=== PATIENT | male | born 1985 | race Caucasian/White ===

== ENCOUNTER 2017-06-26 04:39 | Emergency (ER) | payer SELFPAY ==
--- NOTE | 2017-06-26 05:16 | ER Document Report ---
Doctor's Note Notes: 06/26/17 05:15 I performed a quick triage evaluation the patient. Patient is a 31-year-old male who presents with complaint of a rash. Rash started out on his palm of his left hand and then started to spread. He also has on the palm of his right hand. It has since spread throughout his body. He also has several spots in the back of his throat across his torso. He denies any recent fever. He denies history of sexual transmitted disease. He says the rash does not really hurt nor itch. He says it is just "irritating. He has no medical problems. He has not been outside the country in over 6 months. 6 months ago he was in the [facility]. No other complaints at this time. I have ordered blood work to further evaluate things such as secondary syphilis due to the history of the rash started initially on the palms of his hands. Patient said he received vaccinations as a child. Unsure if he had chickenpox as a kid. Only sick contact is his who had strep throat last week. Patient again denies any recent fevers but his skin felt hot when the rash started last night. Patient denies any recent tick bites but has been out in the [place]. 06/26/17 05:27
[2017-06-26 05:58] LABS: ABSOLUTE EOSINOPHILS # (AUTO) 0.1 10^3/uL (0.0-0.6); ABSOLUTE LYMPHOCYTES (AUTO) 2.4 10^3/uL (0.5-4.7); ABSOLUTE MONOCYTES (AUTO) 0.7 10^3/uL (0.1-1.4); ABSOLUTE NEUT (AUTO) 6.3 10^3/uL (1.7-8.2); BASOPHILS % (AUTO) 0.3 % (0-2); HEMATOCRIT 41.2 % (37.9-51.0); HEMOGLOBIN 14.3 g/dL (13.5-17.0); HGB HCT DIFFERENCE 1.7; LYMPHOCYTES % (AUTO) 25.1 % (13-45); MEAN CORPUSCULAR HEMOGLOBIN 30.3 pg (27.0-33.4); MEAN CORPUSCULAR HGB CONC 34.7 g/dL (32.0-36.0); MEAN CORPUSCULAR VOLUME 87 fl (80-97); MONOCYTES % (AUTO) 7.4 % (3-13); RED BLOOD COUNT 4.72 10^6/uL (4.35-5.55); RED CELL DISTRIBUTION WIDTH 12.9 % (11.5-14.0); SEGMENTED NEUTROPHILS % (AUTO) 66.2 % (42-78); WHITE BLOOD COUNT 9.5 10^3/uL (4.0-10.5)
[2017-06-26 06:20] LABS: ANION GAP 17 (5-19); BLOOD UREA NITROGEN 7 mg/dL (7-20); CARBON DIOXIDE 25 mmol/L (22-30); CHLORIDE 103 mmol/L (98-107); CREATININE RESULT 0.85 mg/dL (0.52-1.25); GLUCOSE 129 mg/dL (75-110); POTASSIUM 3.5 mmol/L (3.6-5.0); SODIUM 144.6 mmol/L (137-145)
--- NOTE | 2017-06-26 07:09 | ER Document Report ---
ED Skin Rash/Insect Bite/Abscs - General Chief Complaint: Rash Stated Complaint: POSSIBLE ALLERGIC REACTION Time Seen by Provider: 06/26/17 06:49 Mode of Arrival: Ambulatory Information source: Patient Notes: This 31-year-old male patient comes emergency room complaining of a rash that started Tuesday morning 06/24/2017. Started initially on his left hand, progressed to his right hand, then spread to his entire body. He states that it does some itching, mostly live when he uses warm water to wash his hands. He does not feel the rash on his back. He has not been in contact with anyone with chickenpox that he knows of. He does have a 1-year-old child at home that is approximately 14 months old. He states that his mother told him he never had chickenpox, but he had shingles at the age of [age] years old. Evaluation of this rash which began first on the hands, without any URI type symptoms is concerning that it may not be chickenpox. Prior to my seeing the patient lab work had been put in to evaluate the possibility of rickettsial or syphilis being the cause of this rash. TRAVEL OUTSIDE OF THE [place] IN LAST 30 DAYS: No - Related Data Allergies/Adverse Reactions: ibuprofen [From Motrin] Allergy (Verified 06/26/17 04:47) Hives Past Medical History - General Information source: Patient - Social History Smoking Status: Current Every Day Smoker Cigarette use (# per day): Yes - 1PPD Chew tobacco use (# tins/day): No Smoking Education Provided: No Frequency of alcohol use: Occasional Drug Abuse: None Occupation: [employer] Lives with: Family Family History: Reviewed & Not Pertinent Patient has suicidal ideation: No Patient has homicidal ideation: No Pulmonary Medical History: Reports: Hx Asthma - Patient had asthma as a child EENT Medical History: Reports: None Neurological Medical History: Reports: None Endocrine Medical History: Reports: None Renal/ Medical History: Reports: None GI Medical History: Reports: None Musculoskeltal Medical History: Reports None Psychiatric Medical History: Reports: None Traumatic Medical History: Reports: None Surgical Hx: Negative - Immunizations Hx Diphtheria, Pertussis, Tetanus Vaccination: No Review of Systems - Review of Systems Constitutional: No symptoms reported EENT: No symptoms reported Cardiovascular: No symptoms reported Respiratory: No symptoms reported Gastrointestinal: No symptoms reported Genitourinary: No symptoms reported Musculoskeletal: No symptoms reported Skin: See HPI Hematologic/Lymphatic: No symptoms reported Neurological/Psychological: No symptoms reported Physical Exam - Vital signs Vitals: Temp Pulse Resp BP Pulse Ox 98.3 F 103 H 18 140/82 H 100 06/26/17 04:57 06/26/17 04:57 06/26/17 04:57 06/26/17 04:57 06/26/17 04:57 Interpretation: Normal - General General appearance: Appears well, Alert In distress: None - HEENT Head: Normocephalic, Atraumatic Eyes: Normal Pupils: PERRL Nasal: Normal Mucous membranes: Normal Pharynx: Normal Neck: Normal - Respiratory Respiratory status: No respiratory distress Chest status: Nontender Breath sounds: Normal Chest palpation: Normal - Cardiovascular Rhythm: Regular Heart sounds: Normal auscultation Murmur: No - Abdominal Inspection: Normal - Back Back: Normal - Extremities General upper extremity: Normal inspection - Except for the rash General lower extremity: Normal inspection - Except for the rash - Neurological Neuro grossly intact: Yes - Psychological Associated symptoms: Normal affect, Normal mood - Skin Skin Temperature: Warm - Both palms have rash in various stages with some small pustules, several beginning to crust over. He has some similar rash on his arms and legs. His back is covered with vesicular appearing rash with erythematous base that is very suggestive of chickenpox. Skin Moisture: Dry Skin Color: Normal Course - Re-evaluation Re-evalutation: 06/26/17 07:12 Patient will be placed on acyclovir 800 mg 5 times a day for 7 days, and serology will be done for Rickettsia and syphilis. - Vital Signs Vital signs: Temp Pulse Resp BP Pulse Ox 98.3 F 103 H 18 140/82 H 100 06/26/17 04:57 06/26/17 04:57 06/26/17 04:57 06/26/17 04:57 06/26/17 04:57 - Laboratory Result Diagrams: 06/26/17 05:25 06/26/17 05:25 Laboratory results interpreted by me: 06/26/17 05:25 Potassium 3.5 L Glucose 129 H Discharge - Discharge Clinical Impression: Chickenpox Qualifiers: Varicella complications: without complication Qualified Code(s): B01.9 - Varicella without complication Condition: Stable Disposition: HOME, SELF-CARE Additional Instructions: Chicken Pox You most likely have chicken pox. This is caused by a virus. It is contagious to other children. Typically, after two days' fever, small red bumps appear. Blisters develop, then collapse leaving a dark crust. New pox sores continue to appear for about three days. You will be contagious until all sores have healed -- about one week from the appearance of the rash. There is no cure for chicken pox. Treatment is relief of symptoms. Antihistamines such as Benadryl can be given for itching. You can try local treatments such as baking soda baths or calamine lotion. Acetaminophen can be used for fever. Do not give your child aspirin during this illness! To prevent spread of the virus, use good handwashing. Shared toys should be cleaned with disinfectant. Clean the toilets, sinks, and counter surfaces in bathrooms. Launder clothing in hot water. If new symptoms such as headache or vomiting occur, if there is severe cough or a return of the fever, or if it appears that a chicken pox sore is infected, see your doctor or go to the hospital emergency room. //////////////////////////////////////////////////////////////////////////////// //////////////////////////////////////////////////////////////////////////////// ////////////////// Your rash is most suspicious for chickenpox, however and adults we do have concerns for other infectious causes that can masquerade like chickenpox. You had blood work sent off for serological testing of rickettsial diseases and syphilis. If these come back positive he will be contacted. For now we will treat you like this is chickenpox using Acyclovir 800 mg every 4 hours 5 times a day with an 8 hour break between the last dose on 1 day and the first dose of the following day. Follow-up with a local medical doctor as needed. RETURN TO THE EMERGENCY ROOM IF ANY NEW OR WORSENING SYMPTOMS. Prescriptions: Acyclovir 800 mg PO ASDIR PRN #35 tablet PRN Reason: Forms: Return to Work
[2017-06-26] MEDS ORDERED: ACYCLOVIR 800 MG TABLET PO ONE (07:19)
[2017-06-26] MEDS ORDERED: ACYCLOVIR 200 MG CAPSULE PO ONE (07:26)
[2017-06-26 07:47] VITALS: BP 120/75
== END 2017-06-26 07:30 | disposition home or self-care (01) ==
LOC: ER 04:39
DX: B01.9 Varicella without complication (principal); R21 Rash and other nonspecific skin eruption; M79.642 Pain in left hand
CPT/HCPCS: 36415; 80048; 85025; 86592; 86757; 87070; 87077; 87880; 99283

== ENCOUNTER 2018-04-07 17:55 | Emergency (ER) | payer OTHER ==
[2018-04-07 18:31] LABS: ABSOLUTE BASOPHILS # (AUTO) 0.1 10^3/uL (0.0-0.2); ABSOLUTE EOSINOPHILS # (AUTO) 0.1 10^3/uL (0.0-0.6); ABSOLUTE LYMPHOCYTES (AUTO) 4.5 10^3/uL (0.5-4.7); ABSOLUTE MONOCYTES (AUTO) 0.8 10^3/uL (0.1-1.4); ABSOLUTE NEUT (AUTO) 5.8 10^3/uL (1.7-8.2); BASOPHILS % (AUTO) 0.5 % (0-2); HEMATOCRIT 41.9 % (37.9-51.0); HEMOGLOBIN 14.7 g/dL (13.5-17.0); LYMPHOCYTES % (AUTO) 39.7 % (13-45); MEAN CORPUSCULAR HEMOGLOBIN 31.2 pg (27.0-33.4); MEAN CORPUSCULAR HGB CONC 35.1 g/dL (32.0-36.0); MEAN CORPUSCULAR VOLUME 89 fl (80-97); MONOCYTES % (AUTO) 7.1 % (3-13); PLATELET COUNT 298 10^3/uL (150-450); RED CELL DISTRIBUTION WIDTH 13.5 % (11.5-14.0); SEGMENTED NEUTROPHILS % (AUTO) 51.7 % (42-78); TOTAL CELLS COUNTED % (AUTO) 100 %; WHITE BLOOD COUNT 11.3 10^3/uL (4.0-10.5)
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
[2018-04-07 18:52] LABS: ALANINE AMINOTRANSFERASE 38 U/L (21-72); ALBUMIN 4.9 g/dL (3.5-5.0); ALKALINE PHOSPHATASE 99 U/L (38-126); ANION GAP 15 (5-19); ASPARTATE AMINO TRANSFERASE 31 U/L (17-59); BILIRUBIN,DIRECT 0.5 mg/dL (0.0-0.4); BILIRUBIN,TOTAL 0.7 mg/dL (0.2-1.3); BLOOD UREA NITROGEN 17 mg/dL (7-20); CALCIUM 9.8 mg/dL (8.4-10.2); CARBON DIOXIDE 22 mmol/L (22-30); CHLORIDE 102 mmol/L (98-107); GLUCOSE 192 mg/dL (75-110); SODIUM 139.1 mmol/L (137-145); TOTAL PROTEIN 7.9 g/dL (6.3-8.2)
--- NOTE | 2018-04-07 19:15 | RADIOLOGY REPORT (SQ) ---
EXAM DESCRIPTION: CHEST SINGLE VIEW COMPLETED DATE/TIME: 04/07/2018 6:37 pm REASON FOR STUDY: chest pain COMPARISON: CT angio chest 09/22/2010 AP chest 09/22/2010 EXAM PARAMETERS: NUMBER OF VIEWS: One view. TECHNIQUE: Single frontal radiographic view of the chest acquired. RADIATION DOSE: NA LIMITATIONS: None. FINDINGS: LUNGS AND PLEURA: No opacities, masses or pneumothorax. No pleural effusion. MEDIASTINUM AND HILAR STRUCTURES: No masses. Contour normal. HEART AND VASCULAR STRUCTURES: Heart normal in size. Normal vasculature. BONES: No acute findings. HARDWARE: None in the chest. OTHER: No other significant finding. IMPRESSION: NO ACUTE RADIOGRAPHIC FINDING IN THE CHEST. TECHNICAL DOCUMENTATION: JOB ID: [id number] [employer]- All Rights Reserved Reading location - IP/workstation name: [email or web address]
[2018-04-07] MEDS ORDERED: ACETAMINOPHEN 325 MG TABLET PO ONE (20:01)
[2018-04-07 22:40] VITALS: BP 137/75
== END 2018-04-07 22:35 | disposition home or self-care (01) ==
LOC: ER 17:55
DX: T40.1X1A Poisoning by heroin, accidental (unintentional), initial encounter (principal); Y92.810 Car as the place of occurrence of the external cause; R11.2 Nausea with vomiting, unspecified; Z63.0 Problems in relationship with spouse or partner; F17.210 Nicotine dependence, cigarettes, uncomplicated; I10 Essential (primary) hypertension; Z88.6 Allergy status to analgesic agent
CPT/HCPCS: 36415; 71045; 80053; 85025; 99284

== ENCOUNTER 2018-07-22 10:34 | Emergency (ER) | payer OTHER ==
[2018-07-22] MEDS ORDERED: ACETAMINOPHEN 325 MG TABLET PO ONE (11:05)
[2018-07-22] MEDS ORDERED: IBUPROFEN 600 MG TABLET PO ONE (11:05)
[2018-07-22] MEDS ORDERED: LIDOCAINE 1% INJ-PF (10 MG/ML) 30 ML SDV INJ ONE (11:06)
--- NOTE | 2018-07-22 11:08 | ER Document Report ---
ED General - General Chief Complaint: Abscess Stated Complaint: KNEE PAIN Time Seen by Provider: 07/22/18 10:58 Notes: Patient is a 32-year-old male who presents emergency department with a chief complaint of right knee pain. 5 days ago he noticed a small area on his knee that was itchy and he began to scratch it. He states that he thinks it might of been a "bug bite." He was seen in urgent care 4 days ago and they drained an abscess. He states that the pain is not any better. He feels like the pain is wrapping around. He does still have an abscess to the area. No packing was placed by the urgent care. He does admit to smoking cigarettes and smoking methamphetamines, but denies IV use of any drugs. TRAVEL OUTSIDE OF THE [place] IN LAST 30 DAYS: No - Related Data Allergies/Adverse Reactions: No Known Allergies Allergy (Unverified 07/22/18 11:10) Past Medical History - Social History Smoking Status: Current Every Day Smoker Frequency of alcohol use: Occasional Drug Abuse: Methamphetamine Family History: Reviewed & Not Pertinent - Past Medical History Cardiac Medical History: Reports: Hx Hypertension Pulmonary Medical History: Reports: Hx Asthma - Patient had asthma as a child Renal/ Medical History: Denies: Hx Peritoneal Dialysis Past Surgical History: Reports: Hx Cardiac Catheterization - 2010 - Immunizations Hx Diphtheria, Pertussis, Tetanus Vaccination: No Review of Systems - Review of Systems Notes: REVIEW OF SYSTEMS: CONSTITUTIONAL : Denies recent illness. Denies recent unintentional weight loss. Denies fever, chills, or sweats. EENT: Denies eye, ear, throat, or mouth pain, discharge, or symptoms. Denies nasal or sinus congestion. CARDIOVASCULAR: Denies chest pain. RESPIRATORY: Denies shortness of breath, cough, congestion, difficulty breathing, or wheezing. GASTROINTESTINAL: Denies nausea, vomiting, and diarrhea. Denies abdominal pain. Denies constipation. GENITOURINARY: Denies difficulty urinating, burning, blood in urine, urgency or frequency. MUSCULOSKELETAL: Denies neck and back pain. Denies joint pain or swelling. SKIN: See HPI HEMATOLOGIC : Denies easy bruising or bleeding. LYMPHATIC: Denies swollen, painful, enlarged glands. NEUROLOGICAL: Denies no numbness or tingling denies weakness. Denies headache. Denies altered mental status. Denies alteration in speech. PSYCHIATRIC: Denies stress, anxiety, alteration in sleep patterns, or depression. All other systems reviewed and negative. Physical Exam - Vital signs Vitals: Temp Pulse Resp BP Pulse Ox 97.9 F 103 H 20 151/80 H 100 07/22/18 10:37 07/22/18 10:37 07/22/18 10:37 07/22/18 10:37 07/22/18 10:37 - Notes Notes: PHYSICAL EXAMINATION: GENERAL: Appears well, healthy, well-nourished, no acute distress. HEAD: Normocephalic, atraumatic. EYES: PERRL, conjunctiva normal, all extraocular movements intact, sclera nonicteric ENT: Moist mucous membranes. NECK: Supple, no noticeable swelling, redness, rash. Normal range of motion. LUNGS: Equal breath sounds bilaterally and clear to auscultation. No wheezes rales or rhonchi. CARDIOVASCULAR: S1-S2, regular rate, regular rhythm. Radial pulses 2+, normal. ABDOMEN: Normoactive bowel sounds. Soft, nontender, no guarding, no rebound tenderness, and no masses palpated. EXTREMITIES: Normal strength and range of motion. Abscess noted to right anterior knee. NEUROLOGICAL: Moves all extremities upon command. Strength 5/5 in all extremities. PSYCH: Normal mood, normal affect. SKIN: Warm, dry. No rash, lesions, ulcerations noted. Normal skin turgor. Course - Re-evaluation Re-evalutation: 07/22/18 12:00 Differential diagnosis includes but normal limited to: abscess, dermoid cyst, sebaceous cyst, furnucle, or others. Patient's x-ray of his right knee is negative. I do not suspect he has a septic joint because he has full range of motion of his right knee. Incision and drainage was done to the patient's right knee. He tolerated the procedure well. A large amount of purulent drainage was drained. Iodoform packing was placed to his right knee. He will follow-up in 3 days for a wound recheck. Based on patient's physical exam and history, this is an abscess. It was drained in the ER. There is surrounding cellulitis. I do not believe the patient has underlying necrotizing fasciitis. Patient has risk factors for MRSA, because his [id number] was diagnosed with MRSA. Based on patient's physical exam and these factors, they will be treated with antibiotics. Verbal discharge instructions were given to the patient. They verbalized understanding. They are stable for discharge. - Vital Signs Vital signs: Temp Pulse Resp BP Pulse Ox 98.2 F 78 20 138/58 H 99 07/22/18 12:08 07/22/18 12:08 07/22/18 10:37 07/22/18 12:08 07/22/18 12:08 Discharge - Discharge Clinical Impression: Abscess Cellulitis Qualifiers: Site of cellulitis: extremity Site of cellulitis of extremity: lower extremity Laterality: right Qualified Code(s): L03.115 - Cellulitis of right lower limb Condition: Stable Disposition: HOME, SELF-CARE Instructions: Abscess ([facility]), Cephalexin ([facility]), MRSA Cellulitis ([facility]), Post Incision and Drainage, Trimethoprim-Sulfa ([facility]) Additional Instructions: You were seen for an abscess that required drainage. Please clean this area with soap and water twice daily and apply a topical antibiotic. Dress the area after each cleaning. He has been prescribed antibiotics for the redness around your knee. Please return if you develop fever, vomiting, the pain at the site worsens, you notice spreading redness from the area, or you have any other symptoms that are concerning to you. You had packing placed to your knee. Please follow-up in 2 days to have a wound recheck. Prescriptions: Cephalexin Monohydrate [Keflex 500 mg Capsule] 500 mg PO Q6H 7 Days capsule Sulfamethoxazole/Trimethoprim [Bactrim Ds Tablet] 1 each PO BID 7 Days #14 tablet Forms: Return to Work
--- NOTE | 2018-07-22 11:40 | RADIOLOGY REPORT (SQ) ---
EXAM DESCRIPTION: KNEE RIGHT 4 VIEWS COMPLETED DATE/TIME: 07/22/2018 11:32 am REASON FOR STUDY: knee pain; abscess COMPARISON: None. NUMBER OF VIEWS: Four views. TECHNIQUE: AP, lateral, and both oblique radiographic images acquired of the right knee. LIMITATIONS: None. FINDINGS: MINERALIZATION: Normal. BONES: No acute fracture or dislocation. No worrisome bone lesions. JOINT: No effusion. SOFT TISSUES: Prepatellar soft tissue swelling. No radio-opaque foreign body. OTHER: No other significant finding. IMPRESSION: PREPATELLAR SOFT TISSUE SWELLING. NO OTHER SIGNIFICANT FINDINGS. TECHNICAL DOCUMENTATION: JOB ID: [id number] [employer]- All Rights Reserved Reading location - IP/workstation name: [email or web address]
[2018-07-22 12:09] VITALS: BP 138/58
== END 2018-07-22 12:25 | disposition home or self-care (01) ==
LOC: ER 10:34
DX: L02.415 Cutaneous abscess of right lower limb (principal); L03.115 Cellulitis of right lower limb; M25.561 Pain in right knee; F17.210 Nicotine dependence, cigarettes, uncomplicated; F15.10 Other stimulant abuse, uncomplicated; I10 Essential (primary) hypertension; Z20.818 Contact with and (suspected) exposure to other bacterial communicable diseases
CPT/HCPCS: 99283; 73564; 10060; J3490

== ENCOUNTER 2019-02-28 21:38 | Emergency (ER) | payer OTHER ==
[2019-02-28] MEDS ORDERED: CLINDAMYCIN HCL 150 MG CAPSULE PO ONE (22:11)
[2019-02-28] MEDS ORDERED: HYDROCODONE/ACETAMINOPHEN 5-325 MG (6 TAB/ER DISP) PO PRN (22:12)
--- NOTE | 2019-02-28 22:19 | ER Document Report ---
ED Oral Problem - General Chief Complaint: Toothache Stated Complaint: RIGHT SIDE POSSIBLE TOOTH ABSCESS Time Seen by Provider: 02/28/19 22:06 Mode of Arrival: Ambulatory Information source: Patient Notes: 33-year-old male presented to ED for dental pain worse on the right lower jaw. He has multiple teeth throughout his mouth that are very decayed. He states he used to use meth but has not used it in a while. Is alert oriented respirations regular and unlabored speaking in full sentences. No definite abscess noted. His gums are swollen. No signs or symptoms of Gary's angina. Patient is able to speak and swallow with no difficulty. TRAVEL OUTSIDE OF THE [place] IN LAST 30 DAYS: No - HPI Patient complains to provider of: Swelling of jaw, Toothache Onset: Yesterday Onset: Gradual Quality of pain: Sharp, Throbbing Severity: Moderate Pain Level: 4 Associated symptoms: Toothache. denies: Tongue swelling, Unable to swallow Worsened by: Heat Relieved by: Nothing Similar symptoms previously: Yes Recently seen / treated by doctor/dentist: No - Related Data Allergies/Adverse Reactions: No Known Allergies Allergy (Unverified 07/22/18 11:10) Past Medical History - General Information source: Patient - Social History Smoking Status: Current Every Day Smoker Cigarette use (# per day): Yes - Pack per day Smoking Education Provided: Yes - 4 minutes Frequency of alcohol use: None Drug Abuse: None Occupation: [email or web address] Lives with: Family Family History: Reviewed & Not Pertinent Patient has suicidal ideation: No Patient has homicidal ideation: No - Past Medical History Cardiac Medical History: Reports: Hx Hypertension Pulmonary Medical History: Reports: Hx Asthma - Patient had asthma as a child EENT Medical History: Reports: None Neurological Medical History: Reports: None Endocrine Medical History: Reports: None Renal/ Medical History: Reports: None Malignancy Medical History: Reports None GI Medical History: Reports: None Musculoskeletal Medical History: Reports None Skin Medical History: Reports Hx Cellulitis Psychiatric Medical History: Reports: None Traumatic Medical History: Reports: None Infectious Medical History: Reports: None Past Surgical History: Reports: Hx Cardiac Catheterization - 2010 - Immunizations Hx Diphtheria, Pertussis, Tetanus Vaccination: No Review of Systems - Review of Systems Constitutional: No symptoms reported EENT: Mouth pain, Dental problem Cardiovascular: No symptoms reported Respiratory: No symptoms reported Gastrointestinal: No symptoms reported Genitourinary: No symptoms reported Male Genitourinary: No symptoms reported Musculoskeletal: No symptoms reported Skin: No symptoms reported Hematologic/Lymphatic: No symptoms reported Neurological/Psychological: No symptoms reported -: Yes All other systems reviewed and negative Physical Exam - Vital signs Vitals: Temp Pulse Resp BP Pulse Ox 99.9 F 119 H 18 141/94 H 98 02/28/19 21:46 02/28/19 21:46 02/28/19 21:46 02/28/19 21:46 02/28/19 21:46 Interpretation: Normal - General General appearance: Appears well, Alert - HEENT Head: Normocephalic, Atraumatic Eyes: Normal Pupils: PERRL Ears: Normal External canal: Normal Tympanic membrane: Normal Sinus: Normal Nasal: Normal Mouth/Lips: Caries Mucous membranes: Normal Teeth diagram: 1 - Most of the teeth in his mouth are very decayed there is swelling around the tooth with redness to the gums. No obvious abscess noted signs or symptoms of Gary's angina Pharynx: Normal Neck: Normal - Respiratory Respiratory status: No respiratory distress Chest status: Nontender Breath sounds: Normal Chest palpation: Normal - Cardiovascular Rhythm: Regular Heart sounds: Normal auscultation Murmur: No - Abdominal Inspection: Normal Distension: No distension Bowel sounds: Normal Tenderness: Nontender Organomegaly: No organomegaly - Back Back: Normal, Nontender - Extremities General upper extremity: Normal inspection, Nontender, Normal color, Normal ROM, Normal temperature General lower extremity: Normal inspection, Nontender, Normal color, Normal ROM, Normal temperature, Normal weight bearing. No: Mandy's sign - Neurological Neuro grossly intact: Yes Cognition: Normal Orientation: AAOx4 [place] Coma Scale Eye Opening: Spontaneous [place] Coma Scale Verbal: Oriented [place] Coma Scale Motor: Obeys Commands [place] Coma Scale Total: 15 Speech: Normal Motor strength normal: LUE, RUE, LLE, RLE Sensory: Normal - Psychological Associated symptoms: Normal affect, Normal mood - Skin Skin Temperature: Warm Skin Moisture: Dry Skin Color: Normal Course - Re-evaluation Re-evalutation: 03/01/19 00:21 Presentation is most consistent with likely an infected tooth. Airway is patent. Vitals within normal limits. Patient is able swallow without any difficulty. There is no significant facial swelling. No evidence of Gary angina, apical abscess, or airway obstruction. Patient will be started on antibiotics. I've instructed to follow-up with dentistry as earliest ability for definitive management. At this time will discharge with return precautions and follow-up recommendations. Verbal discharge instructions given a the bedside and opportunity for questions given. Medication warnings reviewed. Patient is in agreement with this plan and has verbalized understanding of return precautions and the need for primary care follow-up in the next 24-72 hours. - Vital Signs Vital signs: Temp Pulse Resp BP Pulse Ox 99.2 F 98 22 H 137/77 H 100 02/28/19 22:21 02/28/19 22:21 02/28/19 22:21 02/28/19 22:21 02/28/19 22:21 Discharge - Discharge Clinical Impression: Pain due to dental caries Condition: Stable Disposition: HOME, SELF-CARE Instructions: Family Physicians / Practices Additional Instructions: TOOTHACHE: Your pain is due to dental decay. The tooth must be repaired in order for you to feel better. You will, therefore, be referred to a dentist. We do not have dentists on the staff at [facility]. Severe swelling or drainage around a tooth usually means a dental abscess. This also requires evaluation and treatment by the dentist, but antibiotics may be prescribed while awaiting dental treatment. You should be rechecked immediately if you develop major swelling of the face, increasing pain, a lump in the jaw or gums, headache, difficulty swallowing, or fever. ORAL NARCOTIC MEDICATION: You have been given a [employer] dispense pack for pain control. This medication is a narcotic. It's best taken with food, as nausea can result if taken on an empty stomach. Don't operate machinery or drive within six hours of taking this medication. Do not combine this medicine with alcohol, or with any medication which can cause sedation (such as cold tablets or sleeping pills) unless you get permission from the physician. Narcotics tend to cause constipation. If possible, drink plenty of fluids and eat a diet high in fiber and fruits. Please be aware that prescription narcotics also have the potential for abuse. People become addicted to these medications because of the general sense of wellbeing that they induce. This feeling along with a significant reduction in tension, anxiety, and aggression provides a stimulating seductive quality to these drugs. Once your pain is under control, we encourage you to discard your unused narcotics. CLINDAMYCIN: You have been given a prescription for the antibiotic clindamycin. It is often prescribed for infections in the mouth, such as dental infections or abscesses, and for skin infections due to MRSA. It's important that you take all the medication, unless instructed otherwise by your physician. Failure to complete the entire course can result in relapse of your condition. Common side effects of antibiotics include nausea, intestinal cramping, or diarrhea. Women may develop vaginal yeast infections, and babies can get yeast (thrush) in the mouth following the use of antibiotics. Contact your physician if you develop significant side effects from this medication. Allergy to this antibiotic can result in hives, wheezing, faintness, or itching. If symptoms of allergy occur, stop the medication and call the doctor. FOLLOW-UP CARE: You have been referred for follow-up care to the dentists listed below. Call the dentists office for an appointment as you were instructed or within the next two days. If you experience worsening or a significant change in your symptoms, notify the physician immediately or return to the Emergency Department at any time for re-evaluation. [facility] [address] [place] [address] [facility] [place] [address] [facility] [address] [facility] [address] [email or web address] [address] [place] [address] Tuesday- 8:00am to 5:00 pm Will see patients from other [facility]. Charges based on income and family size and accepts Medicare, Medicaid, and Insurances Will pull molars [facility] [place] [address] Hours of Operation 8:00 am - 4:30 pm weekdays The following dental offices accept Medicaid: [facility] Dr. Brito Dr. Keys Dr. Henry Dr. Henriquez Sunny Gaitan, Gurpreet, and Marlene oral surgery Dr. Davis ([place]) Dr. Dumont ([place]) [facility] Drs. Chan and Matty ([place]) Dr. Chavez ([place]) [facility] Dr. Lyons ([place]) Drs. Veloz and ([place]) Medicaid Care Line Prescriptions: Clindamycin HCl 300 mg PO Q6 #28 capsule Forms: Elevated Blood Pressure, Smoking Cessation Education, Return to Work
[2019-02-28 22:22] VITALS: BP 137/77
== END 2019-02-28 22:27 | disposition home or self-care (01) ==
LOC: ER 21:38
DX: K08.89 Other specified disorders of teeth and supporting structures (principal); K02.9 Dental caries, unspecified; R22.0 Localized swelling, mass and lump, head; F17.210 Nicotine dependence, cigarettes, uncomplicated; I10 Essential (primary) hypertension; J45.909 Unspecified asthma, uncomplicated
CPT/HCPCS: 99282; 99406

== ENCOUNTER 2019-09-03 16:11 | Emergency (ER) | payer SELFPAY ==
[2019-09-03] MEDS ORDERED: OXYCODONE-ACETAMINOPHEN 5-325 MG TABLET PO ONE (17:33)
[2019-09-03] MEDS ORDERED: DIPH/PERTUSS(ACELL)/TETANUS VAC/PF 0.5 ML SYR (>=10YO) IM ONE (17:33)
--- NOTE | 2019-09-03 18:03 | RADIOLOGY REPORT (SQ) ---
EXAM DESCRIPTION: HAND LEFT 3 VIEWS COMPLETED DATE/TIME: 09/03/2019 5:48 pm REASON FOR STUDY: puncture with drill at base of thumb/dorsal side COMPARISON: None. EXAM PARAMETERS: NUMBER OF VIEWS: Three views. TECHNIQUE: AP, lateral and oblique radiographic images acquired of the left hand. LIMITATIONS: None. FINDINGS: MINERALIZATION: Normal. BONES: No acute fracture or dislocation. No worrisome bone lesions. JOINTS: No effusions. SOFT TISSUES: There are some tiny calcifications adjacent to the trapezium. OTHER: No other significant finding. IMPRESSION: There are some tiny calcifications adjacent to the trapezium. Cannot exclude a small am ount of avulsed bone. TECHNICAL DOCUMENTATION: JOB ID: [id number] 2010 [employer]- All Rights Reserved Reading location - IP/workstation name: [email or web address]
--- NOTE | 2019-09-03 18:13 | ER Document Report ---
HPI - HPI Time Seen by Provider: 09/03/19 17:21 Pain Level: 5 Notes: Otherwise healthy 34-year-old male presenting to the emergency department with injury to his left hand. Patient reports he was using a power drill when the drill slipped and went into his hand. He has a puncture wound noted on the dorsal surface of his left hand at the base of his thumb. He is unsure when his last tetanus was, he has not taken any medications for pain. - REPRODUCTIVE Reproductive: DENIES: : Past Medical History - General Information source: Patient - Social History Smoking Status: Current Every Day Smoker Chew tobacco use (# tins/day): No Family History: Reviewed & Not Pertinent Patient has suicidal ideation: No Patient has homicidal ideation: No - Past Medical History Cardiac Medical History: Reports: Hx Hypertension Pulmonary Medical History: Reports: Hx Asthma - Patient had asthma as a child Renal/ Medical History: Denies: Hx Peritoneal Dialysis Skin Medical History: Reports Hx Cellulitis Past Surgical History: Reports: Hx Cardiac Catheterization - 2010 - Immunizations Hx Diphtheria, Pertussis, Tetanus Vaccination: No Vertical Provider Document - CONSTITUTIONAL Notes: PHYSICAL EXAMINATION: GENERAL: Well-appearing, well-nourished and in no acute distress. HEAD: Atraumatic, normocephalic. EYES: Pupils equal round extraocular movements intact, conjunctiva are normal. ENT: Nares patent NECK: Normal range of motion LUNGS: No respiratory distress Musculoskeletal: Normal range of motion, see below NEUROLOGICAL: Normal speech, normal gait. PSYCH: Normal mood, normal affect. SKIN: Puncture wound noted to left hand on the dorsal surface at the base of the thumb. No active bleeding noted. Cap refill less than 3 seconds, normal motor and sensation distal to injury. No evidence of ligamentous or tendon injury on exam. - INFECTION CONTROL TRAVEL OUTSIDE OF THE [place] IN LAST 30 DAYS: No Course - Re-evaluation Re-evalutation: Tdap updated. Wound was soaked and cleaned appropriately. X-ray as below. Will start patient on oral antibiotics and give pain medication. Patient instructed to follow-up with orthopedics. Patient verbalized understanding and agreement with this plan. Hand X-Ray 09/03/19 17:33 IMPRESSION: There are some tiny calcifications adjacent to the trapezium. Cannot exclude a small amount of avulsed bone. - Vital Signs Vital signs: Temp Pulse Resp BP Pulse Ox 98.2 F 122 H 20 159/128 H 100 09/03/19 16:19 09/03/19 16:19 09/03/19 16:19 09/03/19 16:19 09/03/19 16:19 Discharge - Discharge Clinical Impression: Hand injury Qualifiers: Encounter type: initial encounter Laterality: left Qualified Code(s): S69.92XA - Unspecified injury of left wrist, hand and finger(s), initial encounter Condition: Stable Disposition: HOME, SELF-CARE Additional Instructions: Please take antibiotics as prescribed. Take ibuprofen 600 mg every 6 hours for pain and inflammation. Keep the wound clean and dry. This should heal up without difficulty, the antibiotics are to prevent infection. Prescriptions: Cephalexin [Keflex] 500 mg PO BID #10 capsule Forms: Return to Work Referrals: CHETAN ARENAS MD [ASSOCIATE] - Follow up as needed
[2019-09-03] MEDS ORDERED: HYDROCODONE/ACETAMINOPHEN 5-325 MG (6 TAB/ER DISP) PO PRN (18:31)
[2019-09-03 18:40] VITALS: BP 124/78
== END 2019-09-03 18:40 | disposition home or self-care (01) ==
LOC: ER 16:11
DX: S69.92XA Unspecified injury of left wrist, hand and finger(s), initial encounter (principal); W29.8XXA Contact with other powered hand tools and household machinery, initial encounter; F17.200 Nicotine dependence, unspecified, uncomplicated; I10 Essential (primary) hypertension
CPT/HCPCS: 90471; 90715; 99283

== ENCOUNTER 2020-07-15 19:32 | Emergency (ER) | payer SELFPAY ==
--- NOTE | 2020-07-15 19:59 | ER Document Report ---
ED Medical Screen (RME) - General Stated Complaint: POSSIBLE OVERDOSE Time Seen by Provider: 07/15/20 19:58 TRAVEL OUTSIDE OF THE [place] IN LAST 30 DAYS: No - HPI Notes: 07/15/20 20:19 34-year-old male with a history of opioid abuse presents to the emergency room via EMS after being found unresponsive and allows bathroom. He was given 0.4 of Narcan intranasally, patient became responsive. patient admits to to methamphetamine and heroin use today. He does report he has a headache, states "I have the worst hangover ever". He does report some nausea, vomiting. denies any chest pain, shortness of breath, abdominal pain. I have greeted and performed a rapid initial assessment of this patient. A comprehensive ED assessment and evaluation of the patient, analysis of test results and completion of the medical decision making process will be conducted by additional ED providers. PHYSICAL EXAMINATION: GENERAL: Well-appearing, well-nourished and in mild distress HEAD: Atraumatic, normocephalic. EYES: Pupils equal round extraocular movements intact, conjunctiva are normal. NECK: Normal range of motion CV: s1, s2 regular LUNGS: No respiratory distress abd: No abdominal distention, no abdominal pain on palpation in all quadrants Musculoskeletal: Normal range of motion NEUROLOGICAL: Normal speech, laying in stretcher SKIN: Warm, Dry, normal turgor, no rashes or lesions noted. The patient was evaluated during a global COVID-19 pandemic and that diagnosis was suspected/considered upon their initial presentation. Their evaluation, treatment and testing was consistent with current guidelines for patients who present with complaints or symptoms and may be related to COVID-19. - Related Data Allergies/Adverse Reactions: No Known Allergies Allergy (Verified 09/03/19 17:30) Past Medical History - Past Medical History Cardiac Medical History: Reports: Hx Hypertension Pulmonary Medical History: Reports: Hx Asthma - Patient had asthma as a child Renal/ Medical History: Denies: Hx Peritoneal Dialysis Skin Medical History: Reports Hx Cellulitis Past Surgical History: Reports: Hx Cardiac Catheterization - 2010 - Immunizations Hx Diphtheria, Pertussis, Tetanus Vaccination: No
[2020-07-15] MEDS ORDERED: ONDANSETRON HCL INJ/PF 4 MG/2 ML SDV IV ONE ×2 (20:18→21:23)
--- NOTE | 2020-07-15 21:01 | RADIOLOGY REPORT (SQ) ---
EXAM DESCRIPTION: XR CHEST 1 VIEW COMPLETED DATE/TME: 07/15/2020 20:36 CLINICAL HISTORY: 34 years, Male, overdose COMPARISON: None. NUMBER OF VIEWS: TECHNIQUE: LIMITATIONS: None. FINDINGS: No evidence of pulmonary infiltrate or pleural effusion. The heart and mediastinum are unremarkable. Pulmonary vascularity appears normal. IMPRESSION: Normal chest x-ray. copyright 2010 [employer]- All Rights Reserved
--- NOTE | 2020-07-15 21:15 | ER Document Report ---
ED General - General Stated Complaint: POSSIBLE OVERDOSE Time Seen by Provider: 07/15/20 19:58 TRAVEL OUTSIDE OF THE [place] IN LAST 30 DAYS: No - HPI Notes: 34-year-old male presents after accidental overdose on heroin. Patient states that he dabbles with heroin and methamphetamine use. 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 He states that he had a fight with his and decided to use IV heroin today. He states that he went into the bathroom at [facility] and he used heroin, he was found there unresponsive. EMS administered 0.4 mg nasal Narcan which restored his mental status. He currently complains of nausea. - Related Data Allergies/Adverse Reactions: No Known Allergies Allergy (Verified 09/03/19 17:30) Past Medical History - General Information source: Patient - Social History Smoking Status: Current Every Day Smoker Drug Abuse: Heroin, Methamphetamine Family History: Reviewed & Not Pertinent - Past Medical History Cardiac Medical History: Reports: Hx Hypertension Pulmonary Medical History: Reports: Hx Asthma - Patient had asthma as a child Renal/ Medical History: Denies: Hx Peritoneal Dialysis Skin Medical History: Reports Hx Cellulitis Past Surgical History: Reports: Hx Cardiac Catheterization - 2010 - Immunizations Hx Diphtheria, Pertussis, Tetanus Vaccination: No Review of Systems - Review of Systems Constitutional: No symptoms reported EENT: No symptoms reported Cardiovascular: denies: Chest pain Respiratory: denies: Short of breath Gastrointestinal: Nausea, Vomiting. denies: Abdominal pain Genitourinary: No symptoms reported Male Genitourinary: No symptoms reported Musculoskeletal: No symptoms reported Skin: No symptoms reported Hematologic/Lymphatic: No symptoms reported Neurological/Psychological: No symptoms reported Physical Exam - Vital signs Vitals: Temp Resp BP Pulse Ox 97.8 F 16 145/88 H 100 07/15/20 19:39 07/15/20 19:39 07/15/20 19:39 07/15/20 19:39 - General General appearance: Appears well, Alert In distress: None - HEENT Head: Normocephalic, Atraumatic Extraocular movements intact: Yes Pupils: PERRL - Respiratory Breath sounds: Normal - Cardiovascular Rhythm: Regular Heart sounds: Normal auscultation - Abdominal Inspection: Obese Tenderness: Nontender - Extremities General upper extremity: Normal ROM General lower extremity: Normal ROM - Neurological Neuro grossly intact: Yes Cognition: Normal Orientation: AAOx4 - Psychological Associated symptoms: Normal affect - Skin Skin Temperature: Warm Course - Re-evaluation Re-evalutation: 34-year-old male arrives after unintentional overdose of heroin at [facility], received Narcan prior to arrival. On exam he is alert and oriented, he is hemodynamically stable, he appears to be suffering the effects of opioid reversal as he is having some nausea/vomiting. His abdomen is nontender, lungs are clear. Will provide symptomatic control, observe in the emergency department. 07/15/20 23:03 Patient has tolerated p.o. He has remained alert and oriented during his ED observation. We discussed discontinuing heroin use and prescription for Narcan was supplied. Return precautions given, stable at time of discharge. - Vital Signs Vital signs: Temp Pulse Resp BP Pulse Ox 98.7 F 16 109/82 100 07/15/20 23:22 07/15/20 19:39 07/15/20 23:22 07/15/20 23:22 - Laboratory Results Critical Laboratory Results Reviewed: No Critical Results - Radiology Results Critical Radiology Results Reviewed: No Critical Results Discharge - Discharge Clinical Impression: Accidental heroin overdose Qualifiers: Encounter type: initial encounter Qualified Code(s): T40.1X1A - Poisoning by heroin, accidental (unintentional), initial encounter Disposition: HOME, SELF-CARE Additional Instructions: Please avoid use of heroin in the future. I prescribed you Narcan in case another overdose occurs. Return to the emergency department for any concerning worsening symptoms. Prescriptions: Naloxone HCl 2 mg IJ ASDIR PRN #1 auto.injct PRN Reason:
[2020-07-15] MEDS ORDERED: KETOROLAC TROMETHAMINE INJ/PF 30 MG/1 ML SDV IV ONE (21:23)
[2020-07-15] MEDS ORDERED: FAMOTIDINE INJ/PF 20 MG/2 ML SDV IV ONE (21:23)
[2020-07-15 23:31] VITALS: BP 109/82
== END 2020-07-15 23:31 | disposition home or self-care (01) ==
LOC: ER 19:32
DX: T40.1X1A Poisoning by heroin, accidental (unintentional), initial encounter (principal); F19.10 Other psychoactive substance abuse, uncomplicated; R11.2 Nausea with vomiting, unspecified; F17.200 Nicotine dependence, unspecified, uncomplicated; I10 Essential (primary) hypertension; J45.909 Unspecified asthma, uncomplicated
CPT/HCPCS: 99284; 96374; 96375; 71045; J1885; J2405; S0028